=== PATIENT | female | born 1990 | race African-American/Black ===

== ENCOUNTER 2023-08-31 20:28 | Emergency (ER) | payer SELFPAY ==
[2023-08-31] MEDS ORDERED: Bacitracin 1 PK ONE (21:10)
[2023-08-31] MEDS ORDERED: Sulfameth/Trimethoprim DS 800-160mg TAB ONE (21:37)
[2023-08-31] MEDS ORDERED: Cephalexin 250 MG CAP ONE (21:37)
[2023-08-31] MEDS ORDERED: Sulfameth/Trimethoprim DS 800-160mg TAB PO SCH (21:45)
[2023-08-31] MEDS ORDERED: Cephalexin 500 MG CAP PO SCH (21:45)
== END 2023-08-31 22:22 | disposition home or self-care (01) ==
LOC: CSHERS 20:28
DX: T25.112A Burn of first degree of left ankle, initial encounter (principal); T31.0 Burns involving less than 10% of body surface; X16.XXXA Contact with hot heating appliances, radiators and pipes, initial encounter
CPT/HCPCS: 16020